=== PATIENT | female | born 1965 | race Caucasian/White ===

== ENCOUNTER 2018-06-28 16:03 | Inpatient (IN) | payer SELFPAY ==
[2018-06-28] MEDS ORDERED: Sodium Chloride 0.9% 100 ML ONE (17:25)
[2018-06-28] MEDS ORDERED: CEFAZOLIN 1 GM VIAL ONE (17:25)
[2018-06-28] MEDS ORDERED: Ketorolac Tromethamine 30 MG/ML VIAL ONE (17:25)
[2018-06-28 17:42] LABS: #Basophils 0.1 thou/uL (0.0-0.2); #Lymphocytes 1.8 thou/uL (1.20-3.40); #Monocytes 0.6 thou/uL (0.11-0.59); #Neutrophils 9.5 thou/uL (1.40-6.50); %Basophils 0.6 % (0.0-1.0); %Eosinophils 0.2 % (0.0-10.0); %Monocytes 5.3 % (0.0-10.0); %Neutrophils 78.8 % (42.0-75.0); Anisocytosis SLIGHT = 6-15 cells (100X) (0-5/hpf); Basophilic Stippling SLIGHT = 1-2 cells (100X) (None Seen); Hemoglobin 8.4 g/dL (12.0-16.0); Hypochromia SLIGHT = 6-15 cells (100X) (0-5/hpf); MDiff Complete? YES; Mean Corpuscular HGB CONC 28.8 g/dL (32.0-36.0); Mean Corpuscular Volume 76.2 fL (78.0-98.0); Mean Platelet Volume 5.4 fL (7.4-10.4); Microcytosis SLIGHT = 6-15 cells (100X) (0-5/hpf); Platelet Count 356 thou/uL (130-400); Platelet Morphology Comment Appears Adequate; Polychromasia SLIGHT = 2-3 cells (100X) (0-2/hpf); RBC Distribution Width 17.6 % (11.5-14.5); Red Blood Cell (RBC) Count 3.84 mill/uL (4.20-5.40); Stomatocytes SLIGHT = 2-5 cells (100X) (0-1/hpf)
[2018-06-28 17:46] LABS: Anion Gap 17 mmol/L (10-20); BUN (Urea Nitrogen) 15 mg/dL (9.8-20.1); Calc. Creatinine Clearance 0 mL/min (70-130); Calcium 9.1 mg/dL (7.8-10.44); Carbon Dioxide 23 mmol/L (22-29); Chloride 102 mmol/L (98-107); Estimated GFR-MDRD 64; Glucose 271 mg/dL (70-105); Potassium 3.7 mmol/L (3.5-5.1); Sodium 138 mmol/L (136-145)
--- NOTE | 2018-06-28 18:20 | ULT ---
EXAM: Right lower extremity venous duplex ultrasound with color and spectral Doppler imaging: HISTORY: Right lower extremity edema and erythema COMPARISON: None FINDINGS: Exam performed from the groin to the ankle including the visualized greater saphenous, common femoral , superficial femoral, profunda femoral, popliteal, trifurcation, and posterior tibial veins. There is phasic flow with normal compressibility and normal augmentation at all examined levels. No evidence for intraluminal thrombus. IMPRESSION:: No evidence for deep venous thrombosis.
--- NOTE | 2018-06-28 19:23 | RAD ---
RIGHT TIBIA AND FIBULA FOUR VIEWS: History: Knee pain. Open wound in right anterior leg. FINDINGS: There are marked arthritic changes of the knee. There appears to be soft tissue swelling anterior to the tibia. I do not see any underlying bony changes. IMPRESSION: No acute bony changes. POS: SUKH
[2018-06-28] MEDS ORDERED: Ketorolac Tromethamine 30 MG/ML VIAL IVP PRN (19:54)
[2018-06-28] MEDS ORDERED: Ondansetron ODT 4 MG TAB SL PRN (19:54)
[2018-06-28] MEDS ORDERED: Ondansetron PF 4 MG/2 ML Vial IVP PRN (19:54)
[2018-06-28] MEDS ORDERED: Acetaminophen 325 MG TAB PO PRN (19:54)
[2018-06-28] MEDS ORDERED: Vancomycin HCl 1 GM in Premix Bag 1 BAG IVPB SCH (21:00)
[2018-06-28] MEDS: Sodium Chloride 0.9% 1,000 ML IV SCH (21:15)
[2018-06-28] MEDS ORDERED: Dextrose 50% Abboject 50 ML SYRINGE SLOW IVP PRN (22:49)
[2018-06-28] MEDS ORDERED: Dextrose 5% in Water 1,000 ML IV PRN (22:49)
[2018-06-29] MEDS: HumaLOG 300 UNITS/3 ML VIAL SC PRN ×3 (00:40→12:11)
[2018-06-29 01:11] VITALS: BMI 55.7
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
[2018-06-29] MEDS: Sodium Chloride 0.9% 1,000 ML IV SCH ×2 (04:15→06:12)
[2018-06-29] MEDS ORDERED: ceFAZolin 1 GM/D5W 1 GM in Premix Bag 1 BAG IVPB SCH (06:00)
[2018-06-29] MEDS: Levothyroxine Sodium 112 MCG TAB PO SCH (06:11)
[2018-06-29] MEDS: Levothyroxine Sodium 25 MCG TAB PO SCH (06:11)
[2018-06-29 06:19] LABS: #Eosinphils 0.1 thou/uL (0.0-0.7); #Lymphocytes 2.9 thou/uL (1.20-3.40); #Monocytes 0.7 thou/uL (0.11-0.59); #Neutrophils 10.2 thou/uL (1.40-6.50); %Basophils 0.2 % (0.0-1.0); %Eosinophils 0.6 % (0.0-10.0); %Lymphocytes 20.8 % (21.0-51.0); %Monocytes 5.3 % (0.0-10.0); %Neutrophils 73.1 % (42.0-75.0); Hemoglobin 8.8 g/dL (12.0-16.0); Mean Corpuscular Hemoglobin 23.1 pg (27.0-31.0); Mean Platelet Volume 7.6 fL (7.4-10.4); Platelet Count 416 thou/uL (130-400); RBC Distribution Width 17.3 % (11.5-14.5); Red Blood Cell (RBC) Count 3.79 mill/uL (4.20-5.40); White Blood Cell (WBC) Count 13.9 thou/uL (4.8-10.8)
[2018-06-29 06:32] LABS: Anion Gap 14 mmol/L (10-20); BUN (Urea Nitrogen) 19 mg/dL (9.8-20.1); Calc. Creatinine Clearance 188 mL/min (70-130); Calcium 9.2 mg/dL (7.8-10.44); Carbon Dioxide 24 mmol/L (22-29); Chloride 104 mmol/L (98-107); Estimated GFR-MDRD 54; Glucose 295 mg/dL (70-105); Iron 18 ug/dL (50-170); Iron Binding Capacity, Total 351 mcg/dL (265-497); Potassium 3.9 mmol/L (3.5-5.1); Sodium 138 mmol/L (136-145)
[2018-06-29] MEDS ORDERED: Iron Sucrose Complex 200 MG in Sodium Chloride 0.9% 250 ML 250 ML IVPB SCH (12:00)
[2018-06-29] MEDS: cefTRIAXone\\ROCEPHIN 1 GM in Sodium Chloride 0.9% 100 ML IVPB SCH (12:10)
[2018-06-29] MEDS ORDERED: Iron, Sodium Ferric Gluconate 250 MG in Sodium Chloride 0.9% 100 ML IVPB SCH (12:30)
[2018-06-29] MEDS ORDERED: Insulin Glargine 10 UNITS in Pre-Filled Syringe SC SCH (14:15)
[2018-06-29] MEDS: Amlodipine 5 MG TAB PO SCH (20:42)
[2018-06-29] MEDS: Atorvastatin Calcium 10 MG TAB PO SCH (20:44)
[2018-06-29] MEDS: Cetirizine HCl 10 MG TAB PO SCH (20:45)
[2018-06-29] MEDS: Ketorolac Tromethamine 30 MG/ML VIAL IVP PRN (21:33)
[2018-06-29] MEDS: Melatonin 3 MG TAB PO PRN (21:34)
--- NOTE | 2018-06-29 22:47 | PDOC.PN ---
- Subjective Encounter Start Date: 06/29/18 Encounter Start Time: 15:00 Patient seen and examined for Cellulitis. No fever. RLE erythema improving. No new complaints. No overnight events - Objective MAR Reviewed: Yes Vital Signs & Weight: Vital Signs (12 hours) Temp Pulse Resp BP BP Pulse Ox 06/29/18 20:42 103 H 147/88 H 06/29/18 20:00 98.1 F 103 H 18 147/88 H 96 06/29/18 16:34 98.2 F 104 H 16 136/87 96 06/29/18 12:03 98.2 F 105 H 16 139/89 96 Weight Admit Weight 423 lb Weight 423 lb I&O: 06/28/18 06/29/18 06/30/18 06:59 06:59 06:59 Intake Total 2850 960 Balance 2850 960 Result Diagrams: 06/30/18 05:23 06/30/18 05:23 Additional Labs: Accuchecks 06/29/18 06/29/18 06/29/18 20:13 16:36 12:04 POC Glucose 216 H 205 H 264 H 06/29/18 06/29/18 05:46 00:37 POC Glucose 288 H 316 H EKG Reviewed by me: Yes (RLE USG/XR - neg) Phys Exam - Physical Examination Constitutional: NAD Respiratory: no wheezing, no rales, no rhonchi, clear to auscultation bilateral Cardiovascular: RRR, no rub no heaves/pulsations Gastrointestinal: soft, non-tender, no distention, positive bowel sounds Musculoskeletal: pulses present, edema present RLE erythema Neurological: non-focal, normal sensation, moves all 4 limbs Psychiatric: normal affect, A&O x 3 Dx/Plan - Plan DVT proph w/SCDs IMPRESSION: Sepsis due to RLE Cellulitis Morbid Obesity BMI 55.8 HTN CKD 2 Iron deficiency Anemia DM2 HLD Hypothyroidism PLAN: DC Ancef Cont IV Vancomycin Monitor Vancomycin level Start IV Ceftriaxone AM labs IV iron sucrose x 1 Walking program Cont wound care Review of Systems - Review of Systems Respiratory: negative: Cough, Dry, Shortness of Breath, Hemoptysis, SOB with Excertion, Pleuritic Pain, Sputum, Wheezing Cardiovascular: negative: chest pain, palpitations, orthopnea, paroxysmal nocturnal dyspnea, edema, light headedness, other - Medications/Allergies Allergies/Adverse Reactions: Allergies Allergy/AdvReac Type Severity Reaction Status Date / Time ergotamine tartrate Allergy Intermediate Rash Verified 06/28/18 21:56 [From Cafergot] Latex, Natural Rubber Allergy Mild Rash Verified 06/28/18 21:56 aspirin Allergy Verified 06/28/18 21:56 blackberry Allergy Verified 06/29/18 12:19 blueberry Allergy Verified 06/29/18 12:19 pineapple Allergy Verified 06/29/18 12:19 strawberry Allergy Verified 06/29/18 12:19 watermelon Allergy Verified 06/29/18 12:19 Medications: Current Medications Acetaminophen (Tylenol) 650 mg PO Q4H PRN PRN Reason: Pain Amlodipine Besylate (Norvasc) 5 mg PO HS [facility] Last Admin: 06/29/18 20:42 Dose: 5 mg Atorvastatin Calcium (Lipitor) 10 mg PO HS [facility] Last Admin: 06/29/18 20:44 Dose: 10 mg Cetirizine HCl (Zyrtec) 10 mg PO HS [facility] Last Admin: 06/29/18 20:45 Dose: 10 mg Dextrose/Water (Dextrose 50%) 25 gm SLOW IVP PRN PRN PRN Reason: Hypoglycemia Glucagon (Glucagon) 1 mg IM PRN PRN PRN Reason: Hypoglycemia Dextrose/Water (D5w) 1,000 mls @ 0 mls/hr IV .Q0M PRN PRN Reason: Hypoglycemia Vancomycin HCl 2 gm/ Sodium (Chloride) 500 mls @ 250 mls/hr IVPB Q12HR [facility] Last Admin: 06/29/18 20:45 Dose: 500 mls Ceftriaxone Sodium 1 gm/ (Sodium Chloride) 100 mls @ 200 mls/hr IVPB 1200 [facility] Last Admin: 06/29/18 12:10 Dose: 100 mls Insulin Glargine 10 units/ (Miscellaneous Medication) 0.1 mls @ 0 mls/hr SC QAM [facility] Insulin Human Lispro (Humalog) 0 units SC .MILD SLIDING SCALE PRN PRN Reason: Mild Correctional Scale Last Admin: 06/29/18 12:11 Dose: 4 unit Insulin Human Lispro (Humalog) 0 units SC .BEDTIME SLIDING SC PRN PRN Reason: Bedtime Correctional Scale Last Admin: 06/29/18 00:40 Dose: 4 unit Ketorolac Tromethamine (Toradol) 15 mg IVP Q6H PRN PRN Reason: Pain Stop: 07/04/18 20:45 Last Admin: 06/29/18 21:33 Dose: 15 mg Levothyroxine Sodium (Synthroid) 25 mcg PO 0600 [facility] Last Admin: 06/29/18 06:11 Dose: 25 mcg Levothyroxine Sodium (Synthroid) 112 mcg PO 0600 [facility] Last Admin: 06/29/18 06:11 Dose: 112 mcg Melatonin (Melatonin) 6 mg PO HSPRN PRN PRN Reason: Insomnia Last Admin: 06/29/18 21:34 Dose: 6 mg Miscellaneous Medication (Pharmacy To Dose) 1 each IVPB PRN PRN PRN Reason: Pharmacy to dose Pantoprazole Sodium (Protonix) 40 mg PO DAILY [facility] Last Admin: 06/29/18 07:52 Dose: 40 mg
[2018-06-30] MEDS: Levothyroxine Sodium 112 MCG TAB PO SCH (05:41)
[2018-06-30] MEDS: HumaLOG 300 UNITS/3 ML VIAL SC PRN ×3 (05:42→20:36)
[2018-06-30] MEDS: Levothyroxine Sodium 25 MCG TAB PO SCH (05:42)
[2018-06-30 05:50] LABS: #Eosinphils 0.1 thou/uL (0.0-0.7); #Lymphocytes 1.8 thou/uL (1.20-3.40); #Monocytes 0.5 thou/uL (0.11-0.59); #Neutrophils 6.9 thou/uL (1.40-6.50); %Basophils 0.2 % (0.0-1.0); %Eosinophils 0.7 % (0.0-10.0); %Lymphocytes 19.5 % (21.0-51.0); %Monocytes 4.9 % (0.0-10.0); %Neutrophils 74.8 % (42.0-75.0); Hemoglobin 8.1 g/dL (12.0-16.0); Mean Corpuscular HGB CONC 30.5 g/dL (32.0-36.0); Mean Corpuscular Hemoglobin 23.1 pg (27.0-31.0); Mean Corpuscular Volume 75.6 fL (78.0-98.0); Mean Platelet Volume 7.3 fL (7.4-10.4); Platelet Count 372 thou/uL (130-400); RBC Distribution Width 17.1 % (11.5-14.5); Red Blood Cell (RBC) Count 3.51 mill/uL (4.20-5.40); White Blood Cell (WBC) Count 9.2 thou/uL (4.8-10.8)
[2018-06-30 06:01] LABS: Hemoglobin A1c 8.1 % (4.0-6.0)
[2018-06-30 06:51] LABS: Anion Gap 9 mmol/L (10-20); BUN (Urea Nitrogen) 13 mg/dL (9.8-20.1); Calc. Creatinine Clearance 265 mL/min (70-130); Calcium 8.5 mg/dL (7.8-10.44); Carbon Dioxide 30 mmol/L (22-29); Chloride 103 mmol/L (98-107); Estimated GFR-MDRD 80; Glucose 210 mg/dL (70-105); Potassium 4.1 mmol/L (3.5-5.1); Sodium 138 mmol/L (136-145)
[2018-06-30 08:28] LABS: Vancomycin, Trough 15.7 ug/mL
[2018-06-30] MEDS ORDERED: Insulin Glargine 10 UNITS in Pre-Filled Syringe SC SCH (09:00)
[2018-06-30] MEDS: cefTRIAXone\\ROCEPHIN 1 GM in Sodium Chloride 0.9% 100 ML IVPB SCH (12:14)
[2018-06-30] MEDS: Acetaminophen 325 MG TAB PO PRN (17:22)
[2018-06-30] MEDS: DULoxetine 30 MG CAP PO SCH (20:31)
[2018-06-30] MEDS: Melatonin 3 MG TAB PO PRN (20:31)
[2018-06-30] MEDS: Atorvastatin Calcium 10 MG TAB PO SCH (20:32)
[2018-06-30] MEDS: Amlodipine 5 MG TAB PO SCH (20:32)
[2018-06-30] MEDS: Cetirizine HCl 10 MG TAB PO SCH (20:36)
[2018-06-30] MEDS: Ketorolac Tromethamine 30 MG/ML VIAL IVP PRN (20:37)
--- NOTE | 2018-06-30 21:56 | PDOC.PN ---
- Subjective Encounter Start Date: 06/30/18 Encounter Start Time: 14:00 Patient seen and examined for Sepsis. No fever. Erythema improving. No new complaints. No overnight events - Objective MAR Reviewed: Yes Vital Signs & Weight: Vital Signs (12 hours) Temp Pulse Resp BP BP Pulse Ox 06/30/18 21:36 98.3 F 95 18 136/79 95 06/30/18 20:32 95 136/73 Weight Admit Weight 423 lb Weight 423 lb I&O: 06/29/18 06/30/18 07/01/18 06:59 06:59 06:59 Intake Total 2850 1835 960 Balance 2850 1835 960 Result Diagrams: 06/30/18 05:23 06/30/18 05:23 Additional Labs: Accuchecks 06/30/18 06/30/18 06/30/18 19:26 16:26 12:12 POC Glucose 234 H 202 H 206 H 06/30/18 05:36 POC Glucose 221 H Phys Exam - Physical Examination Constitutional: NAD Respiratory: no wheezing, no rhonchi Cardiovascular: RRR, no rub Gastrointestinal: soft, non-tender, positive bowel sounds Musculoskeletal: edema present B/L LE dressing + Dx/Plan - Plan IMPRESSION: Sepsis due to RLE Cellulitis Morbid Obesity BMI 55.8 HTN CKD 2 Iron deficiency Anemia HLD Hypothyroidism DM2 PLAN: Cont IV Vancomycin/Ceftriaxone Cont wound care Add Glipizide Resume Metformin/Cymbalta Cont other meds as below DC in 24-48 hr if stable Review of Systems - Review of Systems Respiratory: negative: Cough, Dry, Shortness of Breath, Hemoptysis, SOB with Excertion, Pleuritic Pain, Sputum, Wheezing Cardiovascular: negative: chest pain, palpitations, orthopnea, paroxysmal nocturnal dyspnea, edema, light headedness, other - Medications/Allergies Allergies/Adverse Reactions: Allergies Allergy/AdvReac Type Severity Reaction Status Date / Time ergotamine tartrate Allergy Intermediate Rash Verified 06/28/18 21:56 [From Cafergot] Latex, Natural Rubber Allergy Mild Rash Verified 06/28/18 21:56 aspirin Allergy Verified 06/28/18 21:56 blackberry Allergy Verified 06/29/18 12:19 blueberry Allergy Verified 06/29/18 12:19 pineapple Allergy Verified 06/29/18 12:19 strawberry Allergy Verified 06/29/18 12:19 watermelon Allergy Verified 06/29/18 12:19 Medications: Current Medications Acetaminophen (Tylenol) 650 mg PO Q4H PRN PRN Reason: Pain Last Admin: 06/30/18 17:22 Dose: 650 mg Amlodipine Besylate (Norvasc) 5 mg PO HS [facility] Last Admin: 06/30/18 20:32 Dose: 5 mg Atorvastatin Calcium (Lipitor) 10 mg PO [facility] Last Admin: 06/30/18 20:32 Dose: 10 mg Cetirizine HCl (Zyrtec) 10 mg PO HS [facility] Last Admin: 06/30/18 20:36 Dose: 10 mg Dextrose/Water (Dextrose 50%) 25 gm SLOW IVP PRN PRN PRN Reason: Hypoglycemia Duloxetine HCl (Cymbalta) 30 mg PO BID [facility] Last Admin: 06/30/18 20:31 Dose: 30 mg Glipizide (Glucotrol) 5 mg PO DAILY-[facility] Glucagon (Glucagon) 1 mg IM PRN PRN PRN Reason: Hypoglycemia Dextrose/Water (D5w) 1,000 mls @ 0 mls/hr IV .Q0M PRN PRN Reason: Hypoglycemia Vancomycin HCl 2 gm/ Sodium (Chloride) 500 mls @ 250 mls/hr IVPB Q12HR [facility] Last Admin: 06/30/18 20:36 Dose: 500 mls Ceftriaxone Sodium 1 gm/ (Sodium Chloride) 100 mls @ 200 mls/hr IVPB 1200 [place] Last Admin: 06/30/18 12:14 Dose: 100 mls Insulin Human Lispro (Humalog) 0 units SC .BEDTIME SLIDING SC PRN PRN Reason: Bedtime Correctional Scale Last Admin: 06/30/18 20:36 Dose: 2 unit Insulin Human Lispro (Humalog) 0 units SC .MODERATE SLIDING SC PRN; Protocol PRN Reason: MODERATE SLIDING SCALE Ketorolac Tromethamine (Toradol) 15 mg IVP Q6H PRN PRN Reason: Pain Stop: 07/04/18 20:45 Last Admin: 06/30/18 20:37 Dose: 15 mg Levothyroxine Sodium (Synthroid) 25 mcg PO 0600 [facility] Last Admin: 06/30/18 05:42 Dose: 25 mcg Levothyroxine Sodium (Synthroid) 112 mcg PO 0600 [facility] Last Admin: 06/30/18 05:41 Dose: 112 mcg Melatonin (Melatonin) 6 mg PO HSPRN PRN PRN Reason: Insomnia Last Admin: 06/30/18 20:31 Dose: 6 mg Metformin HCl (Glucophage) mg PO BID-[facility] Miscellaneous Medication (Pharmacy To Dose) 1 each IVPB PRN PRN PRN Reason: Pharmacy to dose Pantoprazole Sodium (Protonix) 40 mg PO DAILY [facility] Last Admin: 06/30/18 07:46 Dose: 40 mg
[2018-07-01] MEDS: Levothyroxine Sodium 25 MCG TAB PO SCH (05:27)
[2018-07-01] MEDS: Levothyroxine Sodium 112 MCG TAB PO SCH (05:27)
[2018-07-01] MEDS: HumaLOG 300 UNITS/3 ML VIAL SC PRN ×3 (05:32→20:26)
[2018-07-01] MEDS: glipiZIDE 5 MG TAB PO SCH (08:11)
[2018-07-01] MEDS: DULoxetine 30 MG CAP PO SCH ×2 (08:11→20:25)
[2018-07-01] MEDS: metFORMIN 500 MG TAB PO SCH ×2 (08:11→17:06)
--- NOTE | 2018-07-01 09:22 | PDOC.PN ---
- Subjective Encounter Start Date: 07/01/18 Encounter Start Time: 09:20 Patient seen and examined for Sepsis/Cellulitis. RLE pain/erythema slowly improving. No fever. No new complaints. No overnight events - Objective MAR Reviewed: Yes Vital Signs & Weight: Vital Signs (12 hours) Temp Pulse Resp BP BP Pulse Ox 07/01/18 07:40 98.2 F 97 18 123/77 94 L 06/30/18 21:36 98.3 F 95 18 136/79 95 Weight Admit Weight 423 lb Weight 423 lb I&O: 06/30/18 07/01/18 07/02/18 06:59 06:59 06:59 Intake Total 1835 3532 Balance 1835 3532 Result Diagrams: 06/30/18 05:23 06/30/18 05:23 Additional Labs: Accuchecks 07/01/18 06/30/18 06/30/18 05:32 19:26 16:26 POC Glucose 230 H 234 H 202 H 06/30/18 12:12 POC Glucose 206 H Phys Exam - Physical Examination Constitutional: NAD Respiratory: no wheezing, no rhonchi Cardiovascular: RRR, no rub Gastrointestinal: soft, non-tender, positive bowel sounds Musculoskeletal: edema present Improving erythema/edema RLE Dx/Plan - Plan DVT proph w/SCDs IMPRESSION: Sepsis due to RLE Cellulitis - improving - Still has significant erythema/edema Morbid Obesity BMI 55.8 HTN CKD 2 Iron deficiency Anemia HLD Hypothyroidism DM2 PLAN: Cont IV Vancomycin/Ceftriaxone Cont wound care Cont other meds as below Prob change to PO Atbx in AM Consult Prevocational/Rehabilitation Counselor Review of Systems - Review of Systems Respiratory: negative: Cough, Dry, Shortness of Breath, Hemoptysis, SOB with Excertion, Pleuritic Pain, Sputum, Wheezing Cardiovascular: negative: chest pain, palpitations, orthopnea, paroxysmal nocturnal dyspnea, edema, light headedness, other - Medications/Allergies Allergies/Adverse Reactions: Allergies Allergy/AdvReac Type Severity Reaction Status Date / Time ergotamine tartrate Allergy Intermediate Rash Verified 06/28/18 21:56 [From Cafergot] Latex, Natural Rubber Allergy Mild Rash Verified 06/28/18 21:56 aspirin Allergy Verified 06/28/18 21:56 blackberry Allergy Verified 06/29/18 12:19 blueberry Allergy Verified 06/29/18 12:19 pineapple Allergy Verified 06/29/18 12:19 strawberry Allergy Verified 06/29/18 12:19 watermelon Allergy Verified 06/29/18 12:19 Medications: Current Medications Acetaminophen (Tylenol) 650 mg PO Q4H PRN PRN Reason: Pain Last Admin: 06/30/18 17:22 Dose: 650 mg Amlodipine Besylate (Norvasc) 5 mg PO [facility] Last Admin: 06/30/18 20:32 Dose: 5 mg Atorvastatin Calcium (Lipitor) 10 mg PO [facility] Last Admin: 06/30/18 20:32 Dose: 10 mg Cetirizine HCl (Zyrtec) 10 mg PO [facility] Last Admin: 06/30/18 20:36 Dose: 10 mg Dextrose/Water (Dextrose 50%) 25 gm SLOW IVP PRN PRN PRN Reason: Hypoglycemia Duloxetine HCl (Cymbalta) 30 mg PO BID [facility] Last Admin: 07/01/18 08:11 Dose: 30 mg Glipizide (Glucotrol) 5 mg PO DAILY-[facility] Last Admin: 07/01/18 08:11 Dose: 5 mg Glucagon (Glucagon) 1 mg IM PRN PRN PRN Reason: Hypoglycemia Dextrose/Water (D5w) 1,000 mls @ 0 mls/hr IV .Q0M PRN PRN Reason: Hypoglycemia Vancomycin HCl 2 gm/ Sodium (Chloride) 500 mls @ 250 mls/hr IVPB Q12HR [facility] Last Admin: 07/01/18 08:14 Dose: 500 mls Ceftriaxone Sodium 1 gm/ (Sodium Chloride) 100 mls @ 200 mls/hr IVPB 1200 [facility] Last Admin: 06/30/18 12:14 Dose: 100 mls Insulin Human Lispro (Humalog) 0 units SC .BEDTIME SLIDING SC PRN PRN Reason: Bedtime Correctional Scale Last Admin: 06/30/18 20:36 Dose: 2 unit Insulin Human Lispro (Humalog) 0 units SC .MODERATE SLIDING SC PRN; Protocol PRN Reason: MODERATE SLIDING SCALE Last Admin: 07/01/18 05:32 Dose: 4 unit Ketorolac Tromethamine (Toradol) 15 mg IVP Q6H PRN PRN Reason: Pain Stop: 07/04/18 20:45 Last Admin: 06/30/18 20:37 Dose: 15 mg Levothyroxine Sodium (Synthroid) 25 mcg PO 0600 [facility] Last Admin: 07/01/18 05:27 Dose: 25 mcg Levothyroxine Sodium (Synthroid) 112 mcg PO 0600 [facility] Last Admin: 07/01/18 05:27 Dose: 112 mcg Melatonin (Melatonin) 6 mg PO HSPRN PRN PRN Reason: Insomnia Last Admin: 06/30/18 20:31 Dose: 6 mg Metformin HCl (Glucophage) 500 mg PO BID-[facility] Last Admin: 07/01/18 08:11 Dose: 500 mg Miscellaneous Medication (Pharmacy To Dose) 1 each IVPB PRN PRN PRN Reason: Pharmacy to dose Pantoprazole Sodium (Protonix) 40 mg PO DAILY [facility] Last Admin: 07/01/18 08:11 Dose: 40 mg
[2018-07-01] MEDS: cefTRIAXone\\ROCEPHIN 1 GM in Sodium Chloride 0.9% 100 ML IVPB SCH (12:55)
[2018-07-01] MEDS: Atorvastatin Calcium 10 MG TAB PO SCH (20:25)
[2018-07-01] MEDS: Amlodipine 5 MG TAB PO SCH (20:25)
[2018-07-01] MEDS: Cetirizine HCl 10 MG TAB PO SCH (20:25)
[2018-07-01] MEDS: Melatonin 3 MG TAB PO PRN (20:35)
[2018-07-01] MEDS: Ketorolac Tromethamine 30 MG/ML VIAL IVP PRN (20:35)
[2018-07-02] MEDS: Acetaminophen 325 MG TAB PO PRN (01:01)
[2018-07-02] MEDS: Levothyroxine Sodium 112 MCG TAB PO SCH (05:30)
[2018-07-02] MEDS: Levothyroxine Sodium 25 MCG TAB PO SCH (05:30)
[2018-07-02] MEDS: HumaLOG 300 UNITS/3 ML VIAL SC PRN ×2 (05:30→13:07)
[2018-07-02] MEDS: glipiZIDE 5 MG TAB PO SCH (08:31)
[2018-07-02] MEDS: DULoxetine 30 MG CAP PO SCH (08:31)
[2018-07-02] MEDS: metFORMIN 500 MG TAB PO SCH ×2 (08:32→17:10)
[2018-07-02] MEDS: cefTRIAXone\\ROCEPHIN 1 GM in Sodium Chloride 0.9% 100 ML IVPB SCH (13:04)
[2018-07-02 17:30] VITALS: BP 124/86; TEMP 97.8
--- NOTE | 2018-07-03 03:21 | DIS ---
DATE OF ADMISSION: 06/28/2018 DATE OF DISCHARGE: 07/02/2018 PRIMARY CARE PHYSICIAN: No PCP. ADMITTING DIAGNOSES: 1. Right lower extremity cellulitis (acute). 2. Acute on-chronic anemia. 3. Diabetes mellitus type 2. 4. Gastroesophageal reflux disease. 5. Hypertension. 6. Sepsis, present on admission. DISCHARGE DIAGNOSES: 1. Sepsis secondary to skin and soft tissue infection: Resolved. 2. Right lower extremity cellulitis: Resolved. 3. History of previous methicillin-resistant Staphylococcus aureus skin infection. 4. Morbid obesity with BMI 55. 5. Essential hypertension. 6. Chronic kidney disease, stage 2. 7. Iron-deficiency anemia. 8. Chronic hyperlipidemia. 9. Chronic hypothyroidism. 10. Chronic diabetes mellitus type 2. CONSULTS: None. PROCEDURES: None. SPECIAL IMAGING: Doppler ultrasound of the right lower extremity. HOSPITAL COURSE: A 53-year-old female with history as mentioned above who came to the hospital for redness, swelling, and pain of the right lower extremity. She met criteria for sepsis. She was admitted for IV antibiotics. Due to her prior history of MRSA skin infection, she was covered broadly with vancomycin and Rocephin. Blood cultures were obtained, but did not grow during that hospitalization. Area of cellulitis was marked and she has shown significant improvement in the erythema of this area. Her white blood cell count is normal and she has been free of elevated temperatures throughout the hospitalization. She will be started on oral doxycycline and clindamycin for 6 more days. PHYSICAL EXAMINATION: VITAL SIGNS: Blood pressure 154/89, pulse 100, respirations 18, oxygen saturation 96% on room air, and temperature 98.2 Fahrenheit. GENERAL: No acute distress. She is awake, alert and oriented x3. HEAD AND NECK: Pupils are equal and reactive to light. Extraocular muscles are intact. Mucous membranes are moist. Neck is supple. CARDIOVASCULAR: Rhythm and rate are regular. No audible murmurs, rubs, or gallops. PULMONARY: Clear to auscultation bilaterally. No wheezes, rhonchi, or crackles. ABDOMEN: Obese, soft, nontender, and nondistended. Positive bowel sounds. EXTREMITIES: No edema. Erythema is much better. Wound care was done with some wound care gauze over the right lower extremity. Capillary refill is less than 3 seconds. SKIN: Normal moist and color. Erythema as above. NEUROLOGIC: Cranial nerves 2 through 12 are grossly intact. Deep tendon reflexes are normoreflexic. LABORATORY ABNORMALITIES: Hemoglobin 8.1, hematocrit 26.5, white blood cell count is in the normal range with 9.2. IMAGING STUDIES: Reviewed. DISCHARGE DISPOSITION: Home with self care. DISCHARGE CONDITION: Stable. DISCHARGE DIET: Diabetic and low-sodium diet. DISCHARGE ACTIVITY: Increased activity as tolerated. Avoid soaking the area of erythema. DISCHARGE MEDICATIONS: See medical reconciliation for details. DISCHARGE FOLLOWUP: She goes to a walk-in clinic. Recommended to follow up in 1 week. DISCHARGE INSTRUCTIONS: The patient was instructed to return to the emergency department if symptoms are worsened. To take her medications as directed and not to miss any appointments. TIME OF DISCHARGE AND PLANNIN minutes. Job ID: [id number]
== END 2018-07-02 17:35 | disposition home or self-care (01) | DRG 872 ==
LOC: SCSER 16:03 → T4-A 18:30
PROVIDERS: ADMIT Emergency Medicine; ATTEND Emergency Medicine
DX: A41.9 Sepsis, unspecified organism (principal); L03.115 Cellulitis of right lower limb; Z68.43 Body mass index [BMI] 50.0-59.9, adult; J45.909 Unspecified asthma, uncomplicated; K21.9 Gastro-esophageal reflux disease without esophagitis; N18.2 Chronic kidney disease, stage 2 (mild); E78.5 Hyperlipidemia, unspecified; E03.9 Hypothyroidism, unspecified; I12.9 Hypertensive chronic kidney disease with stage 1 through stage 4 chronic kidney disease, or unspecified chronic kidney disease; E11.22 Type 2 diabetes mellitus with diabetic chronic kidney disease; E66.01 Morbid (severe) obesity due to excess calories; D50.9 Iron deficiency anemia, unspecified; Z88.8 Allergy status to other drugs, medicaments and biological substances; Z88.0 Allergy status to penicillin; Z91.040 Latex allergy status; Z86.14 Personal history of Methicillin resistant Staphylococcus aureus infection; Z79.84 Long term (current) use of oral hypoglycemic drugs; Z79.899 Other long term (current) drug therapy
CPT/HCPCS: 36415; 36416; 80048; 80202; 82728; 83036; 83540; 83550; 83605; 83735; 85025; 87040; 96365; 96367; 96375; J0690; J0696; J1825; J1885; J2916; J3370; J3490; J7050; Q0162

== ENCOUNTER 2020-08-11 09:04 | Inpatient (IN) | payer SELFPAY ==
[2020-08-11] MEDS ORDERED: Vancomycin 1 GM/200 ML BAG ONE (10:01)
[2020-08-11] MEDS ORDERED: Cefepime 2 GM VIAL ONE (10:01)
[2020-08-11 10:37] LABS: ALT (SGPT) 8 U/L (8-55); AST (SGOT) 11 U/L (5-34); Albumin 3.3 g/dL (3.5-5.0); Alkaline Phosphatase 132 U/L (40-110); Anion Gap 13 mmol/L (10-20); BUN (Urea Nitrogen) 9 mg/dL (9.8-20.1); Bilirubin, Total 0.4 mg/dL (0.2-1.2); CK (CPK) 35 U/L (29-168); Calc. Creatinine Clearance 0 mL/min (70-130); Calcium 8.6 mg/dL (7.8-10.44); Carbon Dioxide 31 mmol/L (22-29); Chloride 102 mmol/L (98-107); Globulin 3.8 g/dL (2.4-3.5); Glucose 171 mg/dL (70-105); Lipase 13 U/L (8-78); Protein, Total 7.1 g/dL (6.0-8.3); Sodium 142 mmol/L (136-145)
[2020-08-11 10:50] LABS: #Eosinphils 0.2 thou/uL (0.0-0.7); #Lymphocytes 1.4 thou/uL (1.20-3.40); #Monocytes 0.2 thou/uL (0.11-0.59); #Neutrophils 3.5 thou/uL (1.40-6.50); %Basophils 0.2 % (0.0-1.0); %Eosinophils 3.3 % (0.0-10.0); %Monocytes 3.8 % (0.0-10.0); %Neutrophils 66.6 % (42.0-75.0); Anisocytosis MODERATE=16-30 cells (100X) (0-5/hpf); Hemoglobin 7.9 g/dL (12.0-16.0); Hypochromia MODERATE=16-30 cells (100X) (0-5/hpf); MDiff Complete? YES; Mean Corpuscular HGB CONC 27.7 g/dL (32.0-36.0); Mean Corpuscular Hemoglobin 20.3 pg (27.0-31.0); Mean Corpuscular Volume 73.2 fL (78.0-98.0); Microcytosis MODERATE=15-30 cells (100X) (0-5/hpf); Ovalocytes SLIGHT = 2-5 cells (100X) (0-1/hpf); Platelet Count 195 thou/uL (130-400); Platelet Morphology Comment Appears Adequate; Polychromasia MODERATE = 3-4 cells (100X) (0-2/hpf); Red Blood Cell (RBC) Count 3.91 mill/uL (4.20-5.40); Spherocytes SLIGHT = 1-5 cells (100X) (None Seen); White Blood Cell (WBC) Count 5.2 thou/uL (4.8-10.8)
[2020-08-11] MEDS ORDERED: Ondansetron PF 4 MG/2 ML Vial IVP PRN (12:46)
[2020-08-11] MEDS ORDERED: Acetaminophen 325 MG TAB PO PRN (12:46)
[2020-08-11] MEDS ORDERED: Dextrose 50% Abboject 50 ML SYRINGE SLOW IVP PRN (12:50)
[2020-08-11] MEDS ORDERED: Dextrose 5% in Water 1,000 ML IV PRN (12:50)
[2020-08-11 13:17] LABS: Bacteria/HPF None Seen HPF (None Seen); Bilirubin Negative (Negative); Blood, Urine 2+ (Negative); Clarity Clear (Clear); Glucose, Urine (Dipstick) Normal (Negative); Ketone, Urine Negative (Negative); Leukocyte 25 Leu/uL (Negative); Nitrite Negative (Negative); Protein, Urine (Dipstick) 10 mg/dL (Neg-Trace); RBC/HPF Greater than 50 HPF (0-3); Specific Gravity, Urine 1.023 (1.002-1.036); Squamous Epithelial 0-3 HPF (0-3); Urobilinogen Normal mg/dL (Less than 2); pH, Urine 5.5 (5.0-9.0)
[2020-08-11 13:47] LABS: Lactic Acid 1.9 mmol/L (0.5-2.2)
[2020-08-11 14:54] VITALS: BMI 55.7
[2020-08-11] MEDS ORDERED: Vancomycin 1 GM in Premix Bag 1 BAG IVPB SCH (15:15)
[2020-08-11] MEDS: HYDROcodone/Acetaminophen 5/325 mg Tablet PO PRN ×2 (16:06→21:08)
[2020-08-11] MEDS: Gabapentin 300 MG CAP PO SCH (21:04)
[2020-08-12] MEDS ORDERED: Guaifenesin DM 100-10/5 ML UDCUP PO PRN (01:12)
[2020-08-12] MEDS: Zolpidem Tartrate 5 MG TAB PO PRN ×2 (01:20→20:58)
[2020-08-12] MEDS: HumaLOG 300 UNITS/3 ML VIAL SC PRN ×3 (06:19→16:48)
[2020-08-12 06:47] LABS: #Eosinphils 0.3 thou/uL (0.0-0.7); #Lymphocytes 1.4 thou/uL (1.20-3.40); #Monocytes 0.5 thou/uL (0.11-0.59); #Neutrophils 6.4 thou/uL (1.40-6.50); %Basophils 0.4 % (0.0-1.0); %Lymphocytes 16.1 % (21.0-51.0); %Monocytes 5.5 % (0.0-10.0); %Neutrophils 73.9 % (42.0-75.0); Hemoglobin 7.1 g/dL (12.0-16.0); Mean Corpuscular HGB CONC 27.2 g/dL (32.0-36.0); Mean Corpuscular Hemoglobin 19.9 pg (27.0-31.0); Mean Corpuscular Volume 73.4 fL (78.0-98.0); Mean Platelet Volume 10.3 fL (7.4-10.4); Platelet Count 435 thou/uL (130-400); RBC Distribution Width 24.2 % (11.5-14.5); Red Blood Cell (RBC) Count 3.58 mill/uL (4.20-5.40); White Blood Cell (WBC) Count 8.7 thou/uL (4.8-10.8)
[2020-08-12 07:11] LABS: Anion Gap 14 mmol/L (10-20); BUN (Urea Nitrogen) 10 mg/dL (9.8-20.1); Calc. Creatinine Clearance 195 mL/min (70-130); Calcium 8.4 mg/dL (7.8-10.44); Carbon Dioxide 25 mmol/L (22-29); Chloride 102 mmol/L (98-107); Glucose 183 mg/dL (70-105); Potassium 3.8 mmol/L (3.5-5.1); Sodium 137 mmol/L (136-145)
[2020-08-12] MEDS ORDERED: Non-Formulary Item 1 EACH (Levothyroxine Sodium [Synthroid] 137 MCG Tablet) PO SCH (09:00)
[2020-08-12] MEDS ORDERED: Enoxaparin Sodium 40 MG/0.4 ML SYRINGE SC SCH (09:00)
[2020-08-12] MEDS: Gabapentin 300 MG CAP PO SCH ×2 (09:09→20:56)
[2020-08-12] MEDS: DULoxetine 30 MG CAP PO SCH ×2 (09:09→20:56)
[2020-08-12] MEDS: HYDROcodone/Acetaminophen 5/325 mg Tablet PO PRN ×2 (09:16→20:58)
[2020-08-12] MEDS: Loratadine 10 MG TAB PO SCH (20:56)
[2020-08-12] MEDS: Atorvastatin Calcium 10 MG TAB PO SCH (20:56)
[2020-08-12] MEDS: Senokot S 8.6-50 MG TAB PO SCH (20:57)
[2020-08-12] MEDS: Amlodipine 5 MG TAB PO SCH (20:57)
[2020-08-12] MEDS: Nystatin Powder 15 GM BOT TOP SCH (20:58)
[2020-08-12] MEDS ORDERED: Cetirizine HCl 10 MG TAB PO SCH (21:00)
[2020-08-13] MEDS ORDERED: Fioricet 325/50/40 mg Tablet PO PRN (00:50)
[2020-08-13] MEDS: HYDROcodone/Acetaminophen 5/325 mg Tablet PO PRN (02:03)
[2020-08-13 02:32] LABS: Vancomycin, Trough 19.5 ug/mL
[2020-08-13] MEDS: Vancomycin HCl 1.75 GM in Sodium Chloride 0.9% 500 ML IVPB SCH ×2 (02:59→17:49)
[2020-08-13] MEDS ORDERED: Cefepime 1 GM in Sodium Chloride 0.9% 100 ML IVPB SCH (06:00)
[2020-08-13 06:08] LABS: #Eosinphils 0.2 thou/uL (0.0-0.7); #Lymphocytes 1.9 thou/uL (1.20-3.40); #Monocytes 0.6 thou/uL (0.11-0.59); %Basophils 0.3 % (0.0-1.0); %Eosinophils 1.9 % (0.0-10.0); %Lymphocytes 15.2 % (21.0-51.0); %Monocytes 4.3 % (0.0-10.0); %Neutrophils 78.3 % (42.0-75.0); Hemoglobin 7.2 g/dL (12.0-16.0); Mean Corpuscular HGB CONC 25.9 g/dL (32.0-36.0); Mean Corpuscular Hemoglobin 19.4 pg (27.0-31.0); Mean Platelet Volume 9.9 fL (7.4-10.4); Platelet Count 520 thou/uL (130-400); RBC Distribution Width 25.2 % (11.5-14.5); White Blood Cell (WBC) Count 12.8 thou/uL (4.8-10.8)
[2020-08-13 06:23] LABS: Lactic Acid 3.4 mmol/L (0.5-2.2)
[2020-08-13 06:26] LABS: ALT (SGPT) 8 U/L (8-55); AST (SGOT) 17 U/L (5-34); Albumin 3.6 g/dL (3.5-5.0); Alkaline Phosphatase 140 U/L (40-110); Anion Gap 15 mmol/L (10-20); BUN (Urea Nitrogen) 11 mg/dL (9.8-20.1); Bilirubin, Total 0.5 mg/dL (0.2-1.2); Calc. Creatinine Clearance 145 mL/min (70-130); Calcium 8.2 mg/dL (7.8-10.44); Carbon Dioxide 26 mmol/L (22-29); Chloride 102 mmol/L (98-107); Globulin 4.2 g/dL (2.4-3.5); Glucose 255 mg/dL (70-105); Potassium 5.1 mmol/L (3.5-5.1); Protein, Total 7.8 g/dL (6.0-8.3); Sodium 138 mmol/L (136-145)
[2020-08-13 06:37] LABS: Actual Bicarbonate (HCO3a) 28.6 mEq/L (22-28); Base Excess (BEa) 0.3 mEq/L (-2.0 to +3.0); Calcium, Ionized (arterial) 1.13 mmol/L (1.12-1.30); Carboxyhemoglobin (COHb) 1.9 gm% (0.0-3.0); Hemoglobin (Hb) 7.3 g/dL (12.0-16.0); O2 Tension (PaO2), arterial 62.1 mmHg (80.0-100.0); Potassium - ABG Lab 5.05 mmol/L (3.70-5.30)
[2020-08-13] MEDS ORDERED: Cefepime 2 GM in Sodium Chloride 0.9% 100 ML IVPB SCH (06:45)
[2020-08-13 06:52] LABS: pH, Arterial 7.21 (7.35-7.45)
[2020-08-13 06:53] LABS: Puncture Site RRA
[2020-08-13 07:15] LABS: Bilirubin Negative (Negative); Blood, Urine 2+ (Negative); Clarity Extra Turbid (Clear); Glucose, Urine (Dipstick) 50 mg/dL (Negative); Ketone, Urine Negative (Negative); Leukocyte Negative Leu/uL (Negative); Nitrite Negative (Negative); Protein, Urine (Dipstick) 200 mg/dL (Neg-Trace); RBC/HPF Greater than 50 HPF (0-3); Specific Gravity, Urine 1.021 (1.002-1.036); Squamous Epithelial 0-3 HPF (0-3); Urobilinogen Normal mg/dL (Less than 2); pH, Urine 5.5 (5.0-9.0)
[2020-08-13 07:17] LABS: Bacteria/HPF 1+ HPF (None Seen)
[2020-08-13] MEDS: Levothyroxine Sodium 112 MCG TAB PO SCH (07:39)
[2020-08-13] MEDS: Levothyroxine Sodium 25 MCG TAB PO SCH (07:39)
[2020-08-13 07:40] LABS: SARS-CoV-2 NAA Rapid Test Not Detected (NotDetected)
[2020-08-13 07:41] LABS: Urine Culture Reflex Yes Yes
[2020-08-13] MEDS: methylPREDNISolone Sod Succ 40 MG VIAL IVP SCH ×3 (09:18→20:30)
[2020-08-13] MEDS: DULoxetine 30 MG CAP PO SCH (09:18)
[2020-08-13] MEDS: Ferrous Sulfate 325 MG TAB PO SCH (09:18)
[2020-08-13] MEDS: Gabapentin 300 MG CAP PO SCH (09:18)
[2020-08-13] MEDS: Senokot S 8.6-50 MG TAB PO SCH ×2 (09:19→20:44)
[2020-08-13] MEDS: Polyethylene Glycol 3350 17 GM Packet PO SCH (09:19)
[2020-08-13] MEDS: Nystatin Powder 15 GM BOT TOP SCH ×2 (09:19→22:42)
[2020-08-13] MEDS: Lantus 1000 UNITS/10 ML VIAL SC SCH ×2 (09:20→20:23)
[2020-08-13] MEDS: Sodium Chloride 0.9% 1,000 ML IV SCH (15:05)
[2020-08-13] MEDS: Cefepime 2 GM in Sodium Chloride 0.9% 100 ML IVPB SCH (20:15)
[2020-08-13] MEDS: HumaLOG 300 UNITS/3 ML VIAL SC PRN (20:24)
[2020-08-13] MEDS: Amlodipine 5 MG TAB PO SCH (20:43)
[2020-08-13] MEDS: Loratadine 10 MG TAB PO SCH (20:43)
[2020-08-13] MEDS: Atorvastatin Calcium 10 MG TAB PO SCH (20:43)
[2020-08-14] MEDS: Sodium Chloride 0.9% 1,000 ML IV SCH (02:30)
[2020-08-14] MEDS: methylPREDNISolone Sod Succ 40 MG VIAL IVP SCH ×3 (02:30→16:27)
[2020-08-14] MEDS: Vancomycin HCl 1.75 GM in Sodium Chloride 0.9% 500 ML IVPB SCH ×2 (02:38→16:27)
[2020-08-14] MEDS: Cefepime 2 GM in Sodium Chloride 0.9% 100 ML IVPB SCH (05:53)
[2020-08-14] MEDS: Levothyroxine Sodium 25 MCG TAB PO SCH (05:54)
[2020-08-14] MEDS: Levothyroxine Sodium 112 MCG TAB PO SCH (05:54)
[2020-08-14] MEDS: Ferrous Sulfate 325 MG TAB PO SCH (09:20)
[2020-08-14] MEDS: Polyethylene Glycol 3350 17 GM Packet PO SCH (09:22)
[2020-08-14] MEDS: Senokot S 8.6-50 MG TAB PO SCH ×2 (09:22→20:48)
[2020-08-14] MEDS: Lantus 1000 UNITS/10 ML VIAL SC SCH ×2 (09:23→20:45)
[2020-08-14] MEDS: Nystatin Powder 15 GM BOT TOP SCH ×2 (09:23→20:45)
[2020-08-14 13:32] LABS: #Eosinphils 0.1 thou/uL (0.0-0.7); #Lymphocytes 0.9 thou/uL (1.20-3.40); #Monocytes 0.4 thou/uL (0.11-0.59); #Neutrophils 10.4 thou/uL (1.40-6.50); %Basophils 0.2 % (0.0-1.0); %Eosinophils 0.5 % (0.0-10.0); %Lymphocytes 8.5 % (21.0-51.0); %Monocytes 3.4 % (0.0-10.0); %Neutrophils 87.4 % (42.0-75.0); Hemoglobin 6.8 g/dL (12.0-16.0); Mean Corpuscular HGB CONC 27.3 g/dL (32.0-36.0); Mean Corpuscular Hemoglobin 20.9 pg (27.0-31.0); Mean Corpuscular Volume 76.5 fL (78.0-98.0); Platelet Count 406 thou/uL (130-400); RBC Distribution Width 25.2 % (11.5-14.5); Red Blood Cell (RBC) Count 3.25 mill/uL (4.20-5.40); White Blood Cell (WBC) Count 11.8 thou/uL (4.8-10.8)
[2020-08-14 13:47] LABS: ALT (SGPT) 8 U/L (8-55); AST (SGOT) 13 U/L (5-34); Albumin 3.5 g/dL (3.5-5.0); Alkaline Phosphatase 129 U/L (40-110); Anion Gap 12 mmol/L (10-20); BUN (Urea Nitrogen) 14 mg/dL (9.8-20.1); Bilirubin, Total 0.4 mg/dL (0.2-1.2); Calc. Creatinine Clearance 201 mL/min (70-130); Calcium 8.8 mg/dL (7.8-10.44); Carbon Dioxide 29 mmol/L (22-29); Chloride 103 mmol/L (98-107); Globulin 4.1 g/dL (2.4-3.5); Glucose 236 mg/dL (70-105); Potassium 5.1 mmol/L (3.5-5.1); Protein, Total 7.6 g/dL (6.0-8.3); Sodium 139 mmol/L (136-145)
[2020-08-14] MEDS ORDERED: predniSONE 20 MG TAB PO SCH (15:15)
[2020-08-14 15:19] LABS: Vancomycin, Trough 18.6 ug/mL
[2020-08-14] MEDS: Amlodipine 5 MG TAB PO SCH (20:44)
[2020-08-14] MEDS: Loratadine 10 MG TAB PO SCH (20:44)
[2020-08-14] MEDS: Atorvastatin Calcium 10 MG TAB PO SCH (20:44)
[2020-08-14] MEDS ORDERED: Cephalexin 250 MG CAP PO SCH (21:00)
[2020-08-14 21:06] VITALS: BP 135/103
[2020-08-14] MEDS ORDERED: HumaLOG 300 UNITS/3 ML VIAL SC PRN (21:34)
[2020-08-15 03:46] LABS: #Lymphocytes 1.2 thou/uL (1.20-3.40); #Monocytes 0.5 thou/uL (0.11-0.59); #Neutrophils 7.2 thou/uL (1.40-6.50); %Basophils 0.1 % (0.0-1.0); %Eosinophils 0.3 % (0.0-10.0); %Lymphocytes 13.4 % (21.0-51.0); %Monocytes 5.4 % (0.0-10.0); %Neutrophils 80.8 % (42.0-75.0); Hemoglobin 6.5 g/dL (12.0-16.0); Mean Corpuscular HGB CONC 27.7 g/dL (32.0-36.0); Mean Corpuscular Hemoglobin 20.8 pg (27.0-31.0); Mean Corpuscular Volume 75.2 fL (78.0-98.0); Platelet Count 368 thou/uL (130-400); RBC Distribution Width 25.2 % (11.5-14.5); Red Blood Cell (RBC) Count 3.11 mill/uL (4.20-5.40); White Blood Cell (WBC) Count 8.9 thou/uL (4.8-10.8)
[2020-08-15 04:08] LABS: Anion Gap 12 mmol/L (10-20); BUN (Urea Nitrogen) 16 mg/dL (9.8-20.1); Calc. Creatinine Clearance 219 mL/min (70-130); Calcium 8.6 mg/dL (7.8-10.44); Carbon Dioxide 28 mmol/L (22-29); Chloride 102 mmol/L (98-107); Glucose 204 mg/dL (70-105); Potassium 4.4 mmol/L (3.5-5.1); Sodium 138 mmol/L (136-145)
[2020-08-15] MEDS: Levothyroxine Sodium 25 MCG TAB PO SCH (05:59)
[2020-08-15] MEDS: Levothyroxine Sodium 112 MCG TAB PO SCH (05:59)
[2020-08-15] MEDS: HumaLOG 300 UNITS/3 ML VIAL SC PRN (05:59)
[2020-08-15] MEDS ORDERED: glipiZIDE 5 MG TAB PO SCH (07:30)
[2020-08-15 07:36] VITALS: TEMP 96.9
[2020-08-15] MEDS ORDERED: predniSONE 20 MG TAB PO SCH (08:00)
[2020-08-15] MEDS ORDERED: metFORMIN 500 MG TAB PO SCH (09:00)
[2020-08-15] MEDS ORDERED: Furosemide 20 MG TAB PO SCH (09:00)
== END 2020-08-15 09:01 | disposition left against medical advice (07) | DRG 602 ==
LOC: ERS 09:04 → T4-B 12:50 → IMCU/EMU 08-13 06:34
PROVIDERS: ADMIT Internal Medicine; ATTEND Internal Medicine
PROC: 5A09457 Assistance with Respiratory Ventilation, 24-96 Consecutive Hours, Continuous Positive Airway Pressure (ICD-10-PCS; principal; 2020-08-13)
DX: L03.116 Cellulitis of left lower limb (principal); J96.01 Acute respiratory failure with hypoxia; J96.02 Acute respiratory failure with hypercapnia; Z68.43 Body mass index [BMI] 50.0-59.9, adult; E66.2 Morbid (severe) obesity with alveolar hypoventilation; E87.2 Acidosis; L03.115 Cellulitis of right lower limb; E03.9 Hypothyroidism, unspecified; K21.9 Gastro-esophageal reflux disease without esophagitis; I10 Essential (primary) hypertension; D50.9 Iron deficiency anemia, unspecified; L25.9 Unspecified contact dermatitis, unspecified cause; E86.0 Dehydration; J45.20 Mild intermittent asthma, uncomplicated; K64.9 Unspecified hemorrhoids; E11.65 Type 2 diabetes mellitus with hyperglycemia; Z20.822 Contact with and (suspected) exposure to COVID-19; E78.5 Hyperlipidemia, unspecified; Z88.8 Allergy status to other drugs, medicaments and biological substances; Z91.040 Latex allergy status; Z90.89 Acquired absence of other organs; Z85.850 Personal history of malignant neoplasm of thyroid
CPT/HCPCS: 36415; 36416; 36600; 71045; 71275; 80048; 80053; 80202; 81001; 81003; 81015; 82550; 82805; 83605; 83690; 83880; 84484; 85025; 85379; 85652; 86140; 86850; 86900; 86901; 87040; 87086; 93005; 93010; 94640; 94660; 96365; 96367; J0692; J1815; J2405; J2920; J3370; J3490; J7030; J7512; J7620; U0002; U0005